=== PATIENT | female | born 1985 | race Two or more races ===

== ENCOUNTER 2016-10-02 07:52 | Outpatient (CLI) | payer MEDICAID ==
[2016-10-02 13:58] VITALS: BMI 28.3
== END 2016-10-02 10:15 | disposition home or self-care (01) ==
LOC: FBCOUT 07:52 → FBC 07:52 → FBCOUT 10:15
PROVIDERS: ATTEND Family Medicine
DX: O47.9 False labor, unspecified (principal); Z3A.00 Weeks of gestation of pregnancy not specified
CPT/HCPCS: 59025; 81002; G0463

== ENCOUNTER 2016-10-03 03:47 | Inpatient (IN) | payer MEDICAID ==
[2016-10-03] MEDS ORDERED: OXYTOCIN IN LR 500 ML IV ONE (04:18)
[2016-10-03] MEDS ORDERED: LACTATED RINGERS 1,000 ML IV PRN (04:18)
[2016-10-03] MEDS ORDERED: IV START KIT ONE (04:34)
[2016-10-03] MEDS ORDERED: MINERAL OIL 25 ML BOT ONE (04:35)
[2016-10-03] MEDS ORDERED: OXYTOCIN 10 UNITS/ML VIAL ONE (04:35)
[2016-10-03] MEDS ORDERED: OXYTOCIN IN LR 0 ML IV ONE (04:35)
[2016-10-03] MEDS ORDERED: LIDOCAINE 1% (PRES FREE) 30 ML VIAL ONE (04:35)
[2016-10-03] MEDS ORDERED: PUMP TUBING ONE (04:35)
[2016-10-03] MEDS ORDERED: LIDOCAINE Viscous 2% 15 ML UDCUP ONE (04:35)
[2016-10-03 04:36] LABS: HEMOGLOBIN 12.7 gm/l (12.0-16.0); MEAN CELL VOLUME 85.2 fl (81.0-99.0); MEAN CORPUSCULAR HEMOGLOBIN 28.5 pg (27.0-31.0); MEAN CORPUSCULAR HGB CONC 33.4 g/dl (33.0-37.0); RED CELL DISTRIBUTION WIDTH 14.3 % (11.5-14.5)
[2016-10-03] MEDS ORDERED: SODIUM CHLORIDE 0.9% FLUSH 10 ML ONE (04:36)
--- NOTE | 2016-10-03 05:00 | PCMAN ---
OB Admission Note - History : 2 Term: 1 : 0 Abortions (S&E): 0 Livin EDC:: 10/03/16 Gestational Age (weeks): 40 Days (#/7): 0 Admit Cervical Dilation:: 9.5 Admit Cervical Effacement (%):: 100 Admit Station:: -1 Admit Presentaton:: vertex Membrane Status: Ruptured Rupture (Date): 10/03/16 Rupture (Time): 04:33 Membranes Comment:: clear Labor Onset (Date): 10/02/16 Labor Onset (Time): 23:00 Contractions: Yes Contraction Frequency:: Q2 mins Heart Rate:: 130 Status:: Category 1, moderate variability, accels present, no decels EFW:: 7 lb Summary of Course:: 31 yo at 40 wks, GBS neg PMHX: allergic rhinitis PSHX: none Meds: PNV SocHX: neg x 3 OBHx: 2011 39 wks 6lb 9oz - Labs Blood Type: A (+) positive Hct/Hgb:: 34.5/11.4 Rubella Status: Immune GBS Status: Negative Abnormal Labs: None Other Labs:: Ab neg HIV NR HBSAg NR GC/CT neg 1hr 137, 3hr not done Tdap 07/15/16 - Review of Systems Denies CP, SOB, LAZARO, RUQ pain, reports good movement. - Physical Exam General: Afebrile, No Acute Distress Psych/Mental Status: Mood/Affect Appropriate Neurological: Normal Speech Lungs: Clear to Auscultation Bilaterally, Normal Air Movement Cardiovascular: Regular Rate and Rhythm, Normal S1, Normal S2 Genitourinary: Normal Female Genitalia Extremities: Full ROM Skin: Normal Color, Warm, Dry - Problems (1) Active labor at term Status: Acute Code: [id number] Assessment/Plan: 31 yo at 40 wks, GBS neg, advanced dilation at admission 8cm, then 9.5cm , s/p AROM - clear - admit - expectant management - desired epidural, but felt labor was too advanced to place one
[2016-10-03 05:19] VITALS: BMI 29.7
[2016-10-03] MEDS ORDERED: OXYTOCIN 10 UNITS/ML VIAL IM ONE (06:25)
[2016-10-03] MEDS ORDERED: BENZOCAINE/MENTHOL 60 APPLIC/BOT TP PRN (06:27)
[2016-10-03] MEDS ORDERED: HYDROCODONE/ACETAMINOPHEN 5/325MG TABLET PO PRN (06:27)
[2016-10-03] MEDS ORDERED: LANOLIN 50 APPLIC/7G TUBE TP PRN (06:27)
[2016-10-03] MEDS ORDERED: IBUPROFEN 800 MG TABLET PO PRN (06:27)
--- NOTE | 2016-10-03 06:31 | PCMDEL ---
Delivery Note - Labor 1st stage (hr/min):: 6 hrs 17 min 2nd stage (hr/min):: 26 min 3rd stage (hr/min):: 4 min Total (hr/min):: 7 hr 13 min Pushed (hr/min):: 26 min - Delivery Delivery (Date): 10/03/16 Delivery (Time): 06:13 Infant Gender: Female Position: OA Umbilical Cord: 3 Vessel Delayed Cord Clamping:: < 1-2 min 1 Minute Total: 9 5 Minute Total: 10 Placenta:: 6:17 EBL:: 250 mL Perineum:: intact Suture:: none Anesthesia/Meds:: IM pitocin Length ROM:: 1 hr 37 min Comments:: of NB female, apgars 9/10, vigorous handed to mom. Cord clamped and cut after > 1 min delay. Cord blood obtained. Placenta delivered and grossly normal. FF with massage. Patient did not have IV (admitted at 8cm and quickly progressed, IV attempt unsuccessful) so IM pit given after delivery of the placenta. No lacerations. QBL 250 mL
[2016-10-04 06:29] LABS: HEMATOCRIT 33.9 % (37.0-47.0); HEMOGLOBIN 11.1 gm/l (12.0-16.0)
[2016-10-04 08:37] VITALS: BP 110/62
--- NOTE | 2016-10-04 13:35 | PDOC39B ---
Hospital Course: ADMIT DATE: 10/03/16 DISCHARGE DATE: 10/04/16 ADMISSION DIAGNOSES: term iup, active labor. PROCEDURES: HISTORY OF PRESENT ILLNESS: 31 year old G2 T1 L0 at 40 weeks 0 days presenting with active labor. HOSPITAL COURSE: The patient presented in active labor and progressed rapidly to complete and had . By day of discharge the patient is ambulating, eating, voiding, and passing flatus without difficulty. Pain is controlled and lochia is appropriate. She is breast feeding and wants to get home to her other child who is 3 years old. - Physical Exam Vital Signs: Temp Pulse Resp BP Pulse Ox 97.3 F 53 16 110/62 10/04/16 08:33 10/04/16 08:33 10/04/16 08:33 10/04/16 08:33 General: Afebrile, No Acute Distress Psych/Mental Status: Mood/Affect Appropriate, Bonding Well Lungs: Clear to Auscultation Bilaterally Cardiovascular: Regular Rate and Rhythm, No Murmur Breast: Soft, Skin intact Fundus: Firm, Midline, At Umbilicus Extremities: No Edema Skin: Warm, Dry, No Rash - Discharge Diagnosis (1) Vaginal delivery Status: Acute Assessment/Plan: Recovering well. Home today and f/u for 6 week pp check. - Discharge Plan Condition: Good Disposition: Home Instruction Forms: Vaginal Discharge Instructions Prescriptions: Ibuprofen [IBUPROFEN 600 MG TABLET (SHF)] 1 tab PO Q6H PRN #30 tablet PRN Reason: Pain Follow-Up: Anca Kim MD [Primary Care Provider] - In 6 weeks
== END 2016-10-04 15:50 | disposition home or self-care (01) | DRG 775 ==
LOC: FBC 03:47 → FBCOUT 03:47 → FBC 04:15 → UNDODISIN 10-04 13:15
PROVIDERS: ADMIT Family Medicine; ATTEND Family Medicine
PROC: 10E0XZZ Delivery of Products of Conception, External Approach (ICD-10-PCS; principal; 2016-10-03)
PROC: 10907ZC Drainage of Amniotic Fluid, Therapeutic from Products of Conception, Via Natural or Artificial Opening (ICD-10-PCS; 2016-10-03)
DX: O80 Encounter for full-term uncomplicated delivery (principal); Z3A.40 40 weeks gestation of pregnancy; Z82.79 Family history of other congenital malformations, deformations and chromosomal abnormalities